=== PATIENT | female | born 1965 | race Caucasian/White ===

== ENCOUNTER → 2016-11-07 | Outpatient (CLI) | payer OTHER ==
--- OUTSIDE RECORDS SUMMARY | 2016-11-07 11:06 | XMS REPORT | Continuity of Care Document ---
Author Author [facility] Organization [facility] Address Unknown Phone Unavailable Care Team Providers Care Director Of Recruitment Name Role Phone PCP Unavailable Source Comments Some departments are not documenting in the electronic medical record. If you do not see the information that you expected, contact Release of Information in the Health Information Management department at [phone] for further assistance in locating additional records.[facility] Active Allergies and Adverse Reactions Allergen Noted Date Severity Reactions Comments Shellfish Containing 10/12/2015 Medium HIVES, RASH Products Current Medications Prescription Sig. Disp. Refills Start End Date Status Date OMEGA-3/DHA/EPA/FISH OIL Take 1 Cap by mouth Active (OMEGA-3 PO) daily. diclofenac sodium DR Take 1 Tab by mouth twice 60 Tab 6 10/16/19 Active (VOLTAREN) 75 mg tablet daily. 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
--- NOTE | 2016-11-11 19:53 | Diagnostic Imaging Report ---
Digital mammogram bilateral screening. This study was compared to the prior exams of 10/23/2015, 10/10/2014, and 08/24/2013. At this time, there are no current complaints. The current study was also evaluated with a Computer Aided Detection (CAD) system. FINDINGS: The fibroglandular tissue in both breasts is dense. This does limit the sensitivity of this exam. Overall, there does not appear to have been any significant change when compared to the prior study. A few benign-appearing calcifications are again seen in the far lateral aspect of each breast. No primary or secondary sign of malignancy is noted. The stereotactic clip in the right breast seen previously is again evident and no different. IMPRESSION: There is no radiographic evidence for malignancy. ACR BI-RADS Category 1: Negative. Result letter will be mailed to the patient. Note: At least 10% of breast cancer is not imaged by mammography. Dictated by: Dictated on workstation # [id number]
== END ==
LOC: RAD 11:03
DX: Z12.31 Encounter for screening mammogram for malignant neoplasm of breast (principal)
CPT/HCPCS: 77067

== ENCOUNTER → 2017-12-09 | Outpatient (CLI) | payer OTHER ==
--- NOTE | 2017-12-11 11:47 | Diagnostic Imaging Report ---
Digital mammogram, bilateral screening Comparison: This study was compared to prior exams of 11/07/2016, 10/23/2015 and 10/10/2014. At this time there are no current complaints. The current study was also evaluated with a Computer Aided Detection (CAD) system. FINDINGS: The fibroglandular tissue in both breasts is heterogeneously dense. This does limit the sensitivity of this exam. Overall, there does not appear to have been any significant change when compared to the prior study. No primary or secondary sign of malignancy is noted. The stereotactic clip in the right breast seen previously is again evident. IMPRESSION: There is no radiographic evidence for malignancy. ACR BI-RADS Category 1: Negative. Result letter will be mailed to the patient. Note: At least 10% of breast cancer is not imaged by mammography. Dictated on workstation # [id number]
== END ==
LOC: RAD 15:11
PROVIDERS: ATTEND Nurse Practitioner Family
DX: Z12.31 Encounter for screening mammogram for malignant neoplasm of breast (principal)
CPT/HCPCS: 77067

== ENCOUNTER → 2017-12-24 | Outpatient (CLI) | payer OTHER | LOC: CARD 11:37 | PROVIDERS: ATTEND Internal Medicine Cardiovascular Disease | DX: R07.89 Other chest pain (principal); R00.2 Palpitations | CPT/HCPCS: 93225; 93226 ==

== ENCOUNTER → 2018-01-19 | Outpatient (CLI) | payer OTHER | LOC: CARD 12:34 | PROVIDERS: ATTEND Internal Medicine Cardiovascular Disease | DX: R00.2 Palpitations (principal); R07.89 Other chest pain | CPT/HCPCS: 93306; 93351 ==

== ENCOUNTER → 2019-01-27 | Outpatient (CLI) | payer OTHER ==
--- NOTE | 2019-01-28 17:37 | Diagnostic Imaging Report ---
INDICATION: Routine screening. COMPARISON: Prior mammogram from 12/09/2017 and 11/07/2016. EXAMINATION: 2D and 3D bilateral screening mammography was performed with CAD. The current study was also evaluated with a Computer Aided Detection (CAD) system. FINDINGS: Both breasts are heterogeneously dense, limiting the sensitivity of mammography. A biopsy marker clip in the upper outer right breast is again noted. The parenchymal pattern is stable. No mass or malignant appearing microcalcifications are seen. Axillae are unremarkable. IMPRESSION: No mammographic features suspicious for malignancy are identified. ACR BI-RADS Category 2: Benign findings. Result letter will be mailed to the patient. Note: At least 10% of breast cancer is not imaged by mammography. Dictated on workstation # [id number]
== END ==
LOC: RAD 14:51
PROVIDERS: ATTEND Nurse Practitioner Family
DX: Z12.31 Encounter for screening mammogram for malignant neoplasm of breast (principal)
CPT/HCPCS: 77067